=== PATIENT | male | born 1960 | race Two or more races ===

== ENCOUNTER 2018-06-15 07:23 | Emergency (ER) | payer OTHER ==
[~2018-06-15] VITALS: Ht 165.1 cm; Wt 63.5 kg
[2018-06-15] MEDS ORDERED: VERAPAMIL ER180 MG PO (07:34)
[2018-06-15] MEDS ORDERED: VALTREX1000 MG PO (07:34)
[2018-06-15] MEDS ORDERED: CLONAZEPAM0.25 MG PO (07:34)
[2018-06-15] MEDS ORDERED: TRANDOLAPRIL2 MG PO (07:35)
[2018-06-15] MEDS ORDERED: DOXYCYCLINE HY100 MG BC (09:05)
== END 2018-06-15 16:36 | disposition home or self-care (01) ==
LOC: ER 07:23
DX: M31.1 Thrombotic microangiopathy (principal)

== ENCOUNTER → 2018-06-21 06:59 | Outpatient (CLI) | payer OTHER ==
[~2018-06-21 06:59] MED LIST: CLONAZEPAM0.25 MG PO; DOXYCYCLINE HY100 MG BC; TRANDOLAPRIL2 MG PO; VALTREX1000 MG PO; VERAPAMIL ER180 MG PO
== END | disposition home or self-care (01) ==
LOC: LAB 06:59
DX: I33.0 Acute and subacute infective endocarditis (principal)

== ENCOUNTER 2018-07-18 08:23 | Outpatient (CLI) | payer OTHER | END 2018-07-18 08:27 | disposition home or self-care (01) | LOC: SONOGRAMA 08:23 | DX: R59.0 Localized enlarged lymph nodes (principal) ==

== ENCOUNTER 2021-11-06 09:20 | Emergency (ER) | payer OTHER ==
[~2021-11-06] VITALS: Ht 165.1 cm; Wt 63.5 kg
== END 2021-11-06 10:16 | disposition home or self-care (01) ==
LOC: ER 09:20
DX: S51.852A Open bite of left forearm, initial encounter (principal); W54.0XXA Bitten by dog, initial encounter; Y93.9 Activity, unspecified; Y92.480 Sidewalk as the place of occurrence of the external cause; Y99.9 Unspecified external cause status

== ENCOUNTER 2022-12-22 07:27 | Outpatient (CLI) | payer OTHER | END 2022-12-22 07:35 | disposition home or self-care (01) | LOC: RAD 07:27 | PROVIDERS: ATTEND Orthopaedic Surgery | DX: M54.59 Other low back pain (principal) ==

== ENCOUNTER 2023-03-05 07:25 | Outpatient (CLI) | payer OTHER | END 2023-03-05 07:34 | disposition home or self-care (01) | LOC: TOM 07:25 | DX: R91.8 Other nonspecific abnormal finding of lung field (principal); Z72.0 Tobacco use ==

== ENCOUNTER 2023-03-09 08:05 | Outpatient (CLI) | payer OTHER | END 2023-03-09 08:19 | disposition home or self-care (01) | LOC: SONOGRAMA 08:05 | PROVIDERS: ATTEND Internal Medicine | DX: E04.2 Nontoxic multinodular goiter (principal) ==

== ENCOUNTER 2023-08-30 12:24 | Emergency (ER) | payer OTHER ==
[~2023-08-30] VITALS: Ht 165.1 cm; Wt 61.2 kg
[2023-08-30] MEDS ORDERED: CHILDREN'S ASPI81 MG PO (12:31)
[2023-08-30] MEDS ORDERED: CLONAZEPAM0.5 M1 (12:31)
[2023-08-30] MEDS ORDERED: TAMS0.4C PO (12:31)
[2023-08-30] MEDS ORDERED: LIPITOR40 M1 PO (12:31)
[2023-08-30 16:15] LABS: HEMOGLOBIN 14.6 g/dL (13-16.00); MEAN CELL VOLUME 95.2 fL (80.0-100.00); MEAN CORPUSCULAR HEMOGLOBIN 32.3 pg (27.00-32.0); MEAN CORPUSCULAR HGB CONC 33.9 g/dl (32.0-36.0); PLATELET COUNT 158 K/uL (150-450); RED BLOOD COUNT 4.52 M/uL (4.00-6.00); RED CELL DISTRIBUTION WIDTH 13.5 % (11.5-14.5)
[2023-08-30] MEDS ORDERED: TUSNEL LIQUID178 ML PO (17:25)
[2023-08-30] MEDS ORDERED: ZITHROMAX500 MG PO (17:25)
== END 2023-08-30 18:16 | disposition home or self-care (01) ==
LOC: ER 12:25
PROVIDERS: General Practice
DX: J03.90 Acute tonsillitis, unspecified (principal); Z20.822 Contact with and (suspected) exposure to COVID-19; I10 Essential (primary) hypertension

== ENCOUNTER 2024-05-20 04:27 | Emergency (ER) | payer OTHER ==
[~2024-05-20] VITALS: Ht 165.1 cm; Wt 63.5 kg
[~2024-05-20 04:27] MED LIST changes: +CHILDREN'S ASPI81 MG PO; +CLONAZEPAM0.5 M1; +LIPITOR40 M1 PO; +TAMS0.4C PO; +TUSNEL LIQUID178 ML PO; +ZITHROMAX500 MG PO
[2024-05-20] MEDS ORDERED: CEFTRIAXONE SODIUM 1,000 MG VIAL IM STA (05:01)
[2024-05-20] MEDS ORDERED: CEFTRIAXONE SODIUM 1,000 MG VIAL ONE (05:08)
== END 2024-05-20 05:12 | disposition home or self-care (01) ==
LOC: ER 04:29
DX: J03.90 Acute tonsillitis, unspecified (principal)

== ENCOUNTER 2024-05-30 21:37 | Inpatient (IN) | payer OTHER ==
[~2024-05-30] VITALS: Ht 162.6 cm; Wt 72.6 kg
[2024-05-30] MEDS ORDERED: FAMOTIDINE/PF 20 MG/2 ML VIAL ONE (22:40)
[2024-05-30] MEDS ORDERED: FAMOTIDINE/PF 20 MG/2 ML VIAL IV PUSH ONE (22:45)
[2024-05-30 23:09] LABS: HEMOGLOBIN 13.8 g/dL (13-16.00); MEAN CELL VOLUME 93.3 fL (80.0-100.00); MEAN CORPUSCULAR HEMOGLOBIN 32.2 pg (27.00-32.0); MEAN CORPUSCULAR HGB CONC 34.5 g/dl (32.0-36.0); PLATELET COUNT 356 K/uL (150-450); RED BLOOD COUNT 4.28 M/uL (4.00-6.00); RED CELL DISTRIBUTION WIDTH 13.4 % (11.5-14.5)
[2024-05-30 23:25] LABS: PARTIAL THROMBOPLASTIN TIME 25.9 SECONDS (22.0-34.0); PROTHROMBIN TIME 10.9 SECONDS (9.0-11.5)
[2024-05-30 23:30] LABS: ALBUMIN 3.8 gm/dL (3.4-5.0); BILIRUBIN TOTAL 0.6 mg/dL (0.3-1.2); CALCIUM 9.5 mg/dL (8.5-10.1); CREATININE SERUM 0.68 mg/dL (0.70-1.30); GFR 117.03; GLOBULINA 3.9 G/DL (2.4-3.5); POTASSIUM 4.06 mEq/L (3.5-5.1); TOTAL PROTEIN 7.7 gm/dL (6.4-8.2)
[2024-05-30] MEDS ORDERED: MEPERIDINE HCL/PF 50 MG/ML VIAL IM ONE (23:45)
[2024-05-30] MEDS ORDERED: DIATRIZOATE MEGLUMINE, SODIUM 30 ML BOTTLE ONE (23:55)
[2024-05-31] MEDS ORDERED: RINGERS SOLUTION,LACTATED 1,000 ML IV STA (03:23)
[2024-05-31] MEDS ORDERED: MECLIZINE HCL 25 MG TABLET PO STA (03:24)
[2024-05-31] MEDS ORDERED: ONDANSETRON HCL 2 MG/ML VIAL IV STA (03:25)
[2024-05-31] MEDS ORDERED: MECLIZINE HCL 25 MG TABLET PO ONE (03:28)
[2024-05-31] MEDS ORDERED: ONDANSETRON HCL 2 MG/ML VIAL ONE (03:29)
[2024-05-31] MEDS ORDERED: PIPERACILLIN/TAZOBACTAM SODIUM 3.375 GM VIAL IV STA (05:19)
[2024-05-31] MEDS ORDERED: PIPERACILLIN/TAZOBACTAM SODIUM 3.375 GM VIAL IV ONE ×2 (05:28→17:54)
[2024-05-31] MEDS ORDERED: LORazepam 2 MG/ML VIAL IM STA (07:08)
[2024-05-31] MEDS ORDERED: LORazepam 2 MG/ML VIAL ONE (07:19)
[2024-05-31] MEDS ORDERED: ACETAMINOPHEN 650 MG SUPP.RECT RECTAL ONE (15:32)
[2024-05-31] MEDS ORDERED: DEXTROSE 5 % AND 0.9 % NACL 1,000 ML IV SCH (17:45)
[2024-05-31] MEDS ORDERED: ACETAMINOPHEN 500 MG GEL..CAP PO PRN (17:45)
[2024-05-31] MEDS ORDERED: ONDANSETRON HCL 4 MG in 0.9 % SODIUM CHLORIDE 50 ML IV PRN (17:45)
[2024-05-31] MEDS ORDERED: MEPERIDINE HCL/PF 25 MG/ML VIAL IM PRN (17:45)
[2024-05-31] MEDS ORDERED: hydrALAZINE HCL 20 MG VIAL IV PRN (17:45)
[2024-05-31] MEDS ORDERED: GUAIFEN/DEXTROMETHORPHAN/PE 10 ML BLIST.PACK PO PRN (17:45)
[2024-05-31] MEDS ORDERED: PIPERACILLIN/TAZOBACTAM SODIUM 3.375 GM in 0.9 % SODIUM CHLORIDE 100 ML IV SCH (18:00)
[2024-05-31] MEDS ORDERED: CLONAZEPAM 0.5 MG TABLET PO SCH (21:00)
[2024-05-31 22:23] VITALS: BP 139/76
[2024-06-01] VITALS: BP 137/86
[2024-06-01 08:42] LABS: HEMATOCRIT 37.8 % (39.0-48.0); HEMOGLOBIN 13.1 g/dL (13-16.00); MEAN CELL VOLUME 94.9 fL (80.0-100.00); MEAN CORPUSCULAR HEMOGLOBIN 32.9 pg (27.00-32.0); MEAN CORPUSCULAR HGB CONC 34.7 g/dl (32.0-36.0); PLATELET COUNT 276 K/uL (150-450); RED BLOOD COUNT 3.99 M/uL (4.00-6.00); RED CELL DISTRIBUTION WIDTH 13.8 % (11.5-14.5)
[2024-06-01] MEDS ORDERED: ENOXAPARIN SODIUM 40 MG/0.4 ML SYRINGE SUBCUTANEO SCH (09:00)
[2024-06-01] MEDS ORDERED: PANTOPRAZOLE SODIUM 40 MG in 0.9 % SODIUM CHLORIDE 8 ML IV PUSH SCH (09:00)
[2024-06-01] MEDS ORDERED: ATORVASTATIN CALCIUM 10 MG TABLET PO SCH (09:00)
[2024-06-01] MEDS ORDERED: TRANDOLAPRIL 2 MG PO SCH (09:00)
[2024-06-01] MEDS ORDERED: VERAPAMIL HCL 180 MG CAP24H.PEL PO SCH (09:00)
[2024-06-01] MEDS ORDERED: TAMSULOSIN HCL 0.4 MG CAP PO SCH (09:00)
[2024-06-01 09:01] LABS: ERYTHROCYTE SEDIMENTATION RATE 40 mm/hr
[2024-06-01 09:06] LABS: INR 1.07; PARTIAL THROMBOPLASTIN TIME 32.2 SECONDS (22.0-34.0); PROTHROMBIN TIME 11.6 SECONDS (9.0-11.5)
[2024-06-01 09:11] LABS: BILIRUBIN TOTAL 1.09 mg/dL (0.3-1.2); BILIRUBIN,CONJUGATED 0.27 mg/dL (0.0-0.2); BILIRUBIN,UNCONJUGATED 0.82 mg/dL (0.0-0.6); CALCIUM 8.5 mg/dL (8.5-10.1); CHOL HDL RATIO 2.8 (0-5.0); CREATININE SERUM 0.8 mg/dL (0.70-1.30); GFR 97.02; GLOBULINA 3.2 G/DL (2.4-3.5); POTASSIUM 4.19 mEq/L (3.5-5.1); TOTAL PROTEIN 6.2 gm/dL (6.4-8.2)
[2024-06-01 09:12] LABS: C-REACTIVE PROTEIN 12.9 MG/DL (0.00-0.29)
[2024-06-01 09:23] VITALS: BP 129/86
[2024-06-01 16:00] VITALS: BP 145/89; O2SAT 97
[2024-06-02 02:24] VITALS: BP 146/90; O2SAT 94
[2024-06-02 08:36] VITALS: BP 164/108; O2SAT 96
[2024-06-02 08:40] LABS: URINE APPEARANCE Clear; URINE BILIRRUBIN Negative (NEGATIVE); URINE BLOOD Negative; URINE COLOR Yellow; URINE GLUCOSE Negative (NEGATIVE); URINE KETONE Negative (NEGATIVE); URINE LEUKOCYTE Negative; URINE NITRATE Negative; URINE PROTEIN Negative (NEGATIVE)
[2024-06-02 08:46] LABS: URINE RBC 12.9 uL (0.0-20.8)
[2024-06-02 08:56] LABS: URINE BACTERIA 1.2 uL (0.0-1933); URINE EPITHELIAL CELLS 0.6 uL (0.0-38.8); URINE WBC 0.9 uL (0.0-23.2)
[2024-06-02 17:17] VITALS: BP 150/91; O2SAT 94
[2024-06-03 03:11] VITALS: BP 162/84; O2SAT 92
[2024-06-03 09:37] VITALS: BP 143/86
[2024-06-03 09:57] LABS: HEMATOCRIT 36.9 % (39.0-48.0); HEMOGLOBIN 12.9 g/dL (13-16.00); MEAN CELL VOLUME 93.7 fL (80.0-100.00); MEAN CORPUSCULAR HEMOGLOBIN 32.8 pg (27.00-32.0); MEAN CORPUSCULAR HGB CONC 34.9 g/dl (32.0-36.0); PLATELET COUNT 287 K/uL (150-450); RED BLOOD COUNT 3.94 M/uL (4.00-6.00); RED CELL DISTRIBUTION WIDTH 13.6 % (11.5-14.5)
[2024-06-03 11:13] LABS: ALBUMIN 3.1 gm/dL (3.4-5.0); BILIRUBIN TOTAL 0.74 mg/dL (0.3-1.2); CALCIUM 8.7 mg/dL (8.5-10.1); CREATININE SERUM 0.86 mg/dL (0.70-1.30); GFR 89.25; GLOBULINA 3.5 G/DL (2.4-3.5); POTASSIUM 3.85 mEq/L (3.5-5.1); TOTAL PROTEIN 6.6 gm/dL (6.4-8.2)
== END 2024-06-03 13:28 | disposition home or self-care (01) | DRG 390 ==
LOC: ER 21:39 → MEDJ 05-31 18:12
PROVIDERS: Emergency Medicine; General Practice; Internal Medicine Infectious Disease; ADMIT Internal Medicine; ATTEND Internal Medicine
PROC: BW21YZZ Computerized Tomography (CT Scan) of Abdomen and Pelvis using Other Contrast (ICD-10-PCS; principal; 2024-05-30)
PROC: 0D9670Z Drainage of Stomach with Drainage Device, Via Natural or Artificial Opening (ICD-10-PCS; 2024-05-31)
DX: K56.609 Unspecified intestinal obstruction, unspecified as to partial versus complete obstruction (principal); D72.829 Elevated white blood cell count, unspecified; I10 Essential (primary) hypertension; E03.9 Hypothyroidism, unspecified

== ENCOUNTER 2024-06-23 07:20 | Outpatient (CLI) | payer OTHER | END 2024-06-23 07:22 | disposition home or self-care (01) | LOC: TOM 07:20 | PROVIDERS: ATTEND Internal Medicine Gastroenterology | DX: K56.609 Unspecified intestinal obstruction, unspecified as to partial versus complete obstruction (principal) ==

== ENCOUNTER 2024-06-26 02:26 | Emergency (ER) | payer OTHER ==
[~2024-06-26] VITALS: Ht 165.1 cm; Wt 61.2 kg
[2024-06-26] MEDS ORDERED: MIRALAX17 GM (02:33)
[2024-06-26] MEDS ORDERED: LEVSIN/SL0.125 MG SL (04:29)
[2024-06-26] MEDS ORDERED: ONDANSETRON ODT4 MG PO (04:29)
== END 2024-06-26 04:33 ==
LOC: ER 02:27
DX: R11.0 Nausea (principal); Z87.898 Personal history of other specified conditions

== ENCOUNTER → 2025-06-30 | Emergency (ER) | payer OTHER ==
[~2025-06-30] MED LIST changes: +LEVSIN/SL0.125 MG SL; +MIRALAX17 GM; +ONDANSETRON ODT4 MG PO
== END | disposition left against medical advice (07) ==
LOC: ER 15:02
DX: Z53.21 Procedure and treatment not carried out due to patient leaving prior to being seen by health care provider (principal)

== ENCOUNTER 2025-08-05 07:24 | Outpatient (CLI) | payer OTHER | END 2025-08-05 07:32 | disposition home or self-care (01) | LOC: TOM 07:24 | PROVIDERS: ATTEND Internal Medicine | DX: R91.8 Other nonspecific abnormal finding of lung field (principal); Z87.891 Personal history of nicotine dependence ==